=== PATIENT | female | born 1955 | race Caucasian/White ===

== ENCOUNTER → 2017-08-22 | Outpatient (CLI) | payer OTHER ==
[~2017-08-22] MED LIST: ALBU8.5H8 INH; BECL8.7A7 INH; CALC1CAP PO; ENAL20TA PO; IPRA4AER INH; OMEGA 3 KRILL OIL PO; UBID1CAP43 PO; [UNRECOGNIZED DRUG - OTHER] PO
== END | disposition home or self-care (01) ==
LOC: CFH 13:30
PROVIDERS: ATTEND Family Medicine
DX: I65.23 Occlusion and stenosis of bilateral carotid arteries (principal)
CPT/HCPCS: 93880

== ENCOUNTER 2017-09-25 05:32 | Observation (INO) | payer OTHER ==
[2017-09-24 14:03] LABS: BASOPHILS # (AUTO) 0.04 x10^3/uL (0-0.1); BASOPHILS % (AUTO) 0 % (0-1); EOSINOPHILS # (AUTO) 0.05 x10^3/uL (0-0.4); EOSINOPHILS % (AUTO) 0 % (1-7); LYMPHOCYTES # (AUTO) 0.93 x10^3/uL (1-3.4); LYMPHOCYTES % (AUTO) 8 % (22-44); MD NO; MEAN CORPUSCULAR HGB CONC 33.1 g/dL (32.4-35.8); MEAN CORPUSCULAR VOLUME 87.7 fL (80-100); MEAN PLATELET VOLUME 8.1 fL (7.4-10.4); MONOCYTES # (AUTO) 0.57 x10^3/uL (0.2-0.8); MONOCYTES % (AUTO) 5 % (2-9); NEUTROPHILS # (AUTO) 10.45 x10^3/uL (1.8-6.8); NEUTROPHILS % (AUTO) 87 % (42-75); PLATELET COUNT 285 x10^3/uL (130-400); RED BLOOD COUNT 4.45 x10^6/uL (3.82-5.3); RED CELL DISTRIBUTION WIDTH 13.9 % (9.6-15.2)
[2017-09-24 14:13] LABS: ALBUMIN 3.7 g/dL (3.4-5.0); ANION GAP 8 mmol/L (5-15); CHLORIDE 102 mmol/L (98-107)
[2017-09-24 14:16] LABS: ALANINE AMINOTRANSFERASE 35 U/L (12-78); ALKALINE PHOSPHATASE 65 U/L (45-117); BILIRUBIN,TOTAL 0.5 mg/dL (0.2-1.0); CREATININE 0.99 mg/dL (0.55-1.02); TOTAL PROTEIN 6.8 g/dL (6.4-8.2)
[~2017-09-25] VITALS: Ht 157.5 cm; Wt 55.7 kg
[~2017-09-25 05:32] MED LIST changes: +ALEN70TA5 PO; +ASPI-496 PO; +ATOR20TA9 PO; +BUDE10.2 INH; +CARB1DRO13 EACHEYE; +CHOL200074 PO; +ENAL10TA PO; +GARL5000 PO; +PRED10TA PO; +[UNRECOGNIZED DRUG - CODE] PO; +[UNRECOGNIZED DRUG - CODE] PO
[2017-09-25] MEDS ORDERED: LACTATED RINGERS 1,000 ML IV SCH (06:24)
[2017-09-25] MEDS ORDERED: BUPIVACAINE/PF 0.5% ONE (06:59)
[2017-09-25] MEDS ORDERED: HEPARIN 1,000 UNITS/ML, 10ML ONE (07:00)
[2017-09-25] MEDS ORDERED: THROMBIN 20,000 UNIT VIAL TP ONE (07:00)
[2017-09-25] MEDS ORDERED: LIDOCAINE 1%, 20ML ONE (07:00)
[2017-09-25] MEDS ORDERED: PROTAMINE SULFATE 10 MG/ML, 5ML ONE (07:00)
[2017-09-25] MEDS ORDERED: EPINEPHRINE 1 MG/ML, 1ML ONE (07:00)
[2017-09-25] MEDS ORDERED: PAPAVERINE 30 MG/ML, 2ML ONE (07:00)
[2017-09-25] MEDS ORDERED: BACITRACIN 50,000 UNIT ONE (07:01)
[2017-09-25] MEDS ORDERED: MIDAZOLAM 1 MG/ML, 2ML ONE (07:02)
[2017-09-25] MEDS ORDERED: FENTANYL PF 250 MCG/5ML ONE (07:03)
[2017-09-25] MEDS ORDERED: REMIFENTANIL 2 MG ONE ×2 (07:24→09:20)
[2017-09-25] MEDS ORDERED: HYDROCORTISONE 100 MG INJ. ONE (09:02)
[2017-09-25] MEDS: LACTATED RINGERS 1,000 ML IV SCH ×2 (10:18→23:38)
[2017-09-25] MEDS ORDERED: METOPROLOL 1 MG/ML, 5ML ONE (10:20)
[2017-09-25] MEDS ORDERED: ACETAMINOPHEN 325 MG TABLET PO PRN (10:30)
[2017-09-25] MEDS: ALBUTEROL SULFATE 2.5 MG/3 ML NPPB SCH (10:30)
[2017-09-25] MEDS: ARTIFICIAL TEARS OPHTH SOLN 15ML EACHEYE SCH (10:30)
[2017-09-25] MEDS ORDERED: HYDROcodone/APAP 5/325 TABLET PO PRN (10:30)
[2017-09-25] MEDS ORDERED: ALENDRONATE 70 MG TABLET PO SCH (10:30)
[2017-09-25] MEDS ORDERED: LABETALOL 5MG/ML 40ML VIAL IVPush PRN (10:30)
[2017-09-25] MEDS: ASPIRIN 81 MG TABLET EC PO SCH (10:30)
[2017-09-25] MEDS ORDERED: METOPROLOL 1 MG/ML, 5ML IVPush ONE (12:00)
[2017-09-25 13:20] VITALS: BP 115/61
[2017-09-25] MEDS ORDERED: PROPOFOL 10 MG/ML, 20ML ONE (16:09)
[2017-09-25] MEDS ORDERED: ROCURONIUM 10 MG/ML,10ML ONE (16:09)
[2017-09-25] MEDS ORDERED: CEFAZOLIN 1,000 MG ONE (16:09)
[2017-09-25] MEDS ORDERED: DEXAMETHASONE 4 MG/ML, 1ML ONE (16:09)
[2017-09-25] MEDS ORDERED: ONDANSETRON 2MG/ML, 2ML ONE (16:09)
[2017-09-25 18:49] VITALS: BP 151/69
[2017-09-25] MEDS: FLUTICASONE/VILANTEROL 200-25MCG/INH INH SCH (20:13)
[2017-09-25] MEDS ORDERED: ATORVASTATIN 20 MG TABLET PO SCH (21:00)
[2017-09-25 23:57] VITALS: BP 121/71
[2017-09-26 03:55] VITALS: BP 130/75
[2017-09-26 06:55] VITALS: BP 145/78
[2017-09-26] MEDS ORDERED: ENALAPRIL 10 MG TABLET PO SCH (09:00)
[2017-09-26] MEDS: ARTIFICIAL TEARS OPHTH SOLN 15ML EACHEYE SCH (09:00)
[2017-09-26] MEDS: FLUTICASONE/VILANTEROL 200-25MCG/INH INH SCH (09:00)
[2017-09-26] MEDS: ALBUTEROL SULFATE 2.5 MG/3 ML NPPB SCH (09:00)
[2017-09-26] MEDS: ASPIRIN 81 MG TABLET EC PO SCH (09:29)
[2017-09-26 12:23] VITALS: BP 146/69
[2017-09-26 14:24] VITALS: BP 137/76
== END 2017-09-26 15:25 | disposition home or self-care (01) ==
LOC: ORIP 05:32 → INTOOBSV 05:32 → 4NOR 13:18 → DCLOUNGE 09-26 15:03
DX: I65.21 Occlusion and stenosis of right carotid artery (principal); J44.9 Chronic obstructive pulmonary disease, unspecified; I10 Essential (primary) hypertension; M81.0 Age-related osteoporosis without current pathological fracture
CPT/HCPCS: 35301; 36415; 80053; 85025; 86850; 86900; 93005; C1729; C1781; G0378; J0171; J0690; J1100; J1644; J1720; J2250; J2405; J2440; J2704; J2720; J3010; J3490; J7120

== ENCOUNTER → 2018-01-07 | Outpatient (CLI) | payer OTHER | LOC: CVU 13:29 | PROVIDERS: ATTEND Internal Medicine Cardiovascular Disease | DX: Z01.818 Encounter for other preprocedural examination (principal); I73.9 Peripheral vascular disease, unspecified; I10 Essential (primary) hypertension; E78.5 Hyperlipidemia, unspecified; Z87.891 Personal history of nicotine dependence | CPT/HCPCS: 93922 ==

== ENCOUNTER → 2018-01-14 | Outpatient (CLI) | payer OTHER ==
[~2018-01-14] MED LIST changes: +REGADENOSON 0.4 MG/5 ML SYRINGE ONE
== END | disposition home or self-care (01) ==
LOC: CFH 07:49
PROVIDERS: ATTEND Internal Medicine Cardiovascular Disease
DX: I73.9 Peripheral vascular disease, unspecified (principal); I65.29 Occlusion and stenosis of unspecified carotid artery
CPT/HCPCS: 78452; 93017; A9502; J2785

== ENCOUNTER → 2018-01-29 | Outpatient (CLI) | payer OTHER ==
[~2018-01-29] MED LIST changes: -REGADENOSON 0.4 MG/5 ML SYRINGE ONE
== END | disposition home or self-care (01) ==
LOC: CFH 07:49
PROVIDERS: ATTEND Family Medicine
DX: M79.672 Pain in left foot (principal); M25.572 Pain in left ankle and joints of left foot; M79.89 Other specified soft tissue disorders

== ENCOUNTER → 2018-03-09 | Outpatient (CLI) | payer OTHER | LOC: CVU 12:22 | PROVIDERS: ATTEND Family Medicine | DX: Z02.9 Encounter for administrative examinations, unspecified (principal) ==

== ENCOUNTER → 2018-03-13 | Outpatient (CLI) | payer OTHER | END | disposition home or self-care (01) | LOC: CFH 08:09 | PROVIDERS: ATTEND Internal Medicine | DX: J98.11 Atelectasis (principal); J84.10 Pulmonary fibrosis, unspecified | CPT/HCPCS: 71250 ==

== ENCOUNTER → 2018-04-03 | Outpatient (CLI) | payer MEDICARE ==
[~2018-04-03] MED LIST changes: +FLUT1BLS3 PO
== END | disposition home or self-care (01) ==
LOC: CFH 09:07
PROVIDERS: ATTEND Family Medicine
DX: Z02.9 Encounter for administrative examinations, unspecified (principal)

== ENCOUNTER → 2018-04-03 | Outpatient (CLI) | payer MEDICARE, OTHER ==
[2018-04-03 09:23] LABS: ALANINE AMINOTRANSFERASE 21 U/L (12-78); ALBUMIN 3.6 g/dL (3.4-5.0); ANION GAP 5 mmol/L (5-15); CALCIUM 8.7 mg/dL (8.5-10.1); CHLORIDE 104 mmol/L (98-107); CREATININE 1.08 mg/dL (0.55-1.02)
[2018-04-03 09:25] LABS: ALKALINE PHOSPHATASE 65 U/L (45-117); BILIRUBIN,TOTAL 0.3 mg/dL (0.2-1.0); TOTAL PROTEIN 6.4 g/dL (6.4-8.2)
== END | disposition home or self-care (01) ==
LOC: STAR 08:01
PROVIDERS: ATTEND Internal Medicine Gastroenterology
DX: Z01.818 Encounter for other preprocedural examination (principal); K59.00 Constipation, unspecified
CPT/HCPCS: 36415; 80053; 93005

== ENCOUNTER 2018-04-21 06:44 | Day surgery (SDC) | payer MEDICARE, OTHER ==
[~2018-04-21] VITALS: Ht 157.5 cm; Wt 59.4 kg
[2018-04-21] MEDS ORDERED: LACTATED RINGERS 1,000 ML IV SCH (07:21)
[2018-04-21 07:22] VITALS: BP 150/81
[2018-04-21 07:26] VITALS: BP 150/81
[2018-04-21] MEDS ORDERED: PROPOFOL 10 MG/ML, 20ML ONE (09:04)
== END 2018-04-21 11:10 | disposition home or self-care (01) ==
LOC: OUT 06:44
PROVIDERS: ATTEND Internal Medicine Gastroenterology
DX: Z09 Encounter for follow-up examination after completed treatment for conditions other than malignant neoplasm (principal); D12.2 Benign neoplasm of ascending colon; D12.3 Benign neoplasm of transverse colon; D12.4 Benign neoplasm of descending colon; D12.5 Benign neoplasm of sigmoid colon; K64.8 Other hemorrhoids; Z86.010 Personal history of colon polyps; Z79.82 Long term (current) use of aspirin; J44.9 Chronic obstructive pulmonary disease, unspecified; I10 Essential (primary) hypertension
CPT/HCPCS: 45385; 88305; J2704; J7120

== ENCOUNTER → 2018-05-08 | Outpatient (CLI) | payer MEDICARE | END | disposition home or self-care (01) | LOC: CFH 14:42 | PROVIDERS: ATTEND Family Medicine | DX: Z12.31 Encounter for screening mammogram for malignant neoplasm of breast (principal) | CPT/HCPCS: 77067 ==

== ENCOUNTER → 2019-10-08 | Outpatient (CLI) | payer MEDICARE ==
[~2019-10-08] MED LIST changes: -ALEN70TA5 PO; +ALEN70TA6 PO; +ATOR20TA37 PO; -ATOR20TA9 PO
== END | disposition home or self-care (01) ==
LOC: CFH 10:55
PROVIDERS: ATTEND Family Medicine
DX: Z13.820 Encounter for screening for osteoporosis (principal); M81.0 Age-related osteoporosis without current pathological fracture; N95.8 Other specified menopausal and perimenopausal disorders
CPT/HCPCS: 77080

== ENCOUNTER 2021-02-20 03:12 | Emergency (ER) | payer MEDICARE ==
[~2021-02-20] VITALS: Ht 152.4 cm; Wt 45.7 kg
[~2021-02-20 03:12] MED LIST changes: -ALEN70TA6 PO; +ALEN70TA77 PO; -ENAL10TA PO; +ENAL10TA9 PO; -ENAL20TA PO; +ENAL20TA9 PO
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
--- NOTE | 2021-02-20 04:20 | NUR ---
pt attached to monitors, vss, nadn. email operations manager in room performing an EKG. wctm
[2021-02-20 04:38] LABS: AMPHETAMINE SCREEN, URINE Positive (Negative); BARBITURATE SCREEN, URINE Negative (Negative); BENZODIAZEPINE SCREEN, URINE Negative (Negative); CANNABINOID SCREEN, URINE Positive (Negative); COCAINE SCREEN, URINE Negative (Negative); METHADONE SCREEN, URINE Negative (Negative); OPIATE SCREEN, URINE Negative (Negative)
[2021-02-20 05:08] LABS: BASOPHILS % (AUTO) 1 % (0-1); EOSINOPHILS % (AUTO) 1 % (1-7); LYMPHOCYTES % (AUTO) 15 % (22-44); MEAN CORPUSCULAR HEMOGLOBIN 29.2 pg (27.0-34.8); MEAN PLATELET VOLUME 9.4 fL (7.4-10.4); MONOCYTES % (AUTO) 8 % (2-9); NEUTROPHILS % (AUTO) 75 % (42-75); PLATELET COUNT 175 x10^3/uL (130-400); RED BLOOD COUNT 4.52 x10^6/uL (3.82-5.3); RED CELL DISTRIBUTION WIDTH 12.6 % (9.6-15.2)
[2021-02-20 05:14] LABS: ALANINE AMINOTRANSFERASE 22 U/L (12-78); ALBUMIN 3.6 g/dL (3.4-5.0); ANION GAP 7 mmol/L (5-15); CHLORIDE 104 mmol/L (98-107); SALICYLATE LEVEL 2.1 mg/dL (2.8-20.0)
[2021-02-20 05:25] LABS: ALKALINE PHOSPHATASE 58 U/L (45-117); BILIRUBIN,TOTAL 0.5 mg/dL (0.2-1.0); TOTAL PROTEIN 6.2 g/dL (6.4-8.2)
--- NOTE | 2021-02-20 05:32 | NUR ---
Patient is resting comfortably in bed. Bed in lowest, rails engaged, call light on lap. Vital Signs within normal limits. WCTM.
[2021-02-20 05:48] VITALS: BP 147/64
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
== END 2021-02-20 06:01 | disposition home or self-care (01) ==
LOC: ED 05:30
DX: F15.150 Other stimulant abuse with stimulant-induced psychotic disorder with delusions (principal); R94.31 Abnormal electrocardiogram [ECG] [EKG]; R44.0 Auditory hallucinations; R44.1 Visual hallucinations; I10 Essential (primary) hypertension; J44.9 Chronic obstructive pulmonary disease, unspecified; Z87.891 Personal history of nicotine dependence
CPT/HCPCS: 36415; 80053; 80299; 80307; 80320; 80329; 84443; 85025; 93005; 99284; G0480

== ENCOUNTER 2021-04-18 08:46 | Emergency (ER) | payer MEDICARE ==
[~2021-04-18] VITALS: Ht 154.9 cm; Wt 48.9 kg
--- NOTE | 2021-04-18 09:10 | NUR ---
PATIENT WALKED BACK FROM TRIAGE WITH CHIEF C/O [place] AND WEAKNESS X2 DAYS. PATIENT DENIES FEVER, COUGH OR SOB. CONNECTED TO MONITOR, BP IS 165/101, ERMD AWARE, OTHER VSS, CALL LIGHT WITHIN REACH.
--- NOTE | 2021-04-18 09:10 | NUR ---
ERMD AT BEDSIDE FOR EVALUATION.
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
[2021-04-18] MEDS ORDERED: LABETALOL 5MG/ML, 20ML ONE (09:41)
[2021-04-18 09:50] LABS: BASOPHILS % (AUTO) 1 % (0-1); EOSINOPHILS % (AUTO) 2 % (1-7); LYMPHOCYTES % (AUTO) 17 % (22-44); MEAN CORPUSCULAR HEMOGLOBIN 28.9 pg (27.0-34.8); MEAN PLATELET VOLUME 8.5 fL (7.4-10.4); MONOCYTES % (AUTO) 9 % (2-9); NEUTROPHILS % (AUTO) 71 % (42-75); PLATELET COUNT 220 x10^3/uL (130-400); RED BLOOD COUNT 4.75 x10^6/uL (3.82-5.3); RED CELL DISTRIBUTION WIDTH 12.8 % (9.6-15.2)
--- NOTE | 2021-04-18 09:50 | NUR ---
PATIENT AMBULATED TO BATHROOM WITH STEADY GAIT FOR URINE SAMPLE, URINE COLLECTED AND SENT TO LAB. PATIENT MEDICATED PER eMAR, CONNECTED TO MONITOR, VSS, CALL LIGHT WITHIN REACH.
[2021-04-18] MEDS ORDERED: LABETALOL 5MG/ML, 20ML IVPush ONE (10:00)
[2021-04-18 10:01] LABS: ANION GAP 7 mmol/L (5-15); CALCIUM 8.8 mg/dL (8.5-10.1); CHLORIDE 105 mmol/L (98-107); CREATININE 0.92 mg/dL (0.55-1.02)
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
[2021-04-18 10:05] LABS: TROPONIN I < 0.015 ng/mL (0.000-0.045)
[2021-04-18] MEDS ORDERED: ACETAMINOPHEN 500 MG TABLET ONE (10:23)
[2021-04-18 10:28] LABS: MICROSCOPIC AUTO
[2021-04-18] MEDS ORDERED: SODIUM CHLORIDE 0.9%, 500ML IVBOLUS ONE (10:30)
[2021-04-18] MEDS ORDERED: ACETAMINOPHEN 325 MG TABLET PO ONE (10:30)
--- NOTE | 2021-04-18 10:33 | NUR ---
PATIENT MEDICATED PER eMAR, NADN, CONNECTED TO MONITOR, VSS, CALL LIGHT WITHIN REACH.
[2021-04-18 11:08] VITALS: BP 153/73
--- NOTE | 2021-04-18 11:15 | NUR ---
IV removed with tip intact. Patient given discharge instructions and prescription and they have confirmed that they understand the instructions. Drug treatment options paperwork given to patient. Patient ambulatory with steady gait. NAD, all questions answered appropriately, denies additional needs at this time. No personal belongings left in room after discharge.
== END 2021-04-18 11:16 | disposition home or self-care (01) ==
LOC: ED 08:54
DX: N30.00 Acute cystitis without hematuria (principal); R51.9 Headache, unspecified; I10 Essential (primary) hypertension; F15.129 Other stimulant abuse with intoxication, unspecified; J44.9 Chronic obstructive pulmonary disease, unspecified; Z87.891 Personal history of nicotine dependence
CPT/HCPCS: 36415; 71045; 80048; 81001; 82040; 84484; 85025; 87086; 93005; 96361; 96374; 99285; J7040